=== PATIENT | female | born 1990 ===

== ENCOUNTER 2017-10-04 09:37 | Day surgery (SDC) | payer BC ==
[~2017-10-04 09:37] MED LIST: CEPH500 PO; IBUP800
== END 2017-10-04 23:00 | disposition home or self-care (01) ==
LOC: US 09:37
PROC: BG44ZZZ Ultrasonography of Thyroid Gland (ICD-10-PCS; principal; 2017-10-04)
DX: D44.0 Neoplasm of uncertain behavior of thyroid gland (principal)
CPT/HCPCS: 76536

== ENCOUNTER → 2017-11-12 | Outpatient (CLI) | payer BC | LOC: LAB SHORT 14:24 → PLD 14:24 | DX: R22.1 Localized swelling, mass and lump, neck (principal) ==

== ENCOUNTER 2018-02-28 08:20 | Day surgery (SDC) | payer BC ==
[~2018-02-28] VITALS: Ht 165.1 cm; Wt 71.2 kg
[~2018-02-28 08:20] MED LIST changes: +DHA100 MG PO; +Hydrocodone-Ap1 EA23 PO; +Verotin-Gr Cap1 EACH PO
== END 2018-02-28 12:12 | disposition home or self-care (01) ==
LOC: ORSCSDS 08:20
PROVIDERS: Otolaryngology
PROC: 0JB50ZX Excision of Left Neck Subcutaneous Tissue and Fascia, Open Approach, Diagnostic (ICD-10-PCS; principal; 2018-02-28 09:30)
PROC: 0JB40ZX Excision of Right Neck Subcutaneous Tissue and Fascia, Open Approach, Diagnostic (ICD-10-PCS; principal; 2018-02-28 09:30)
DX: D21.0 Benign neoplasm of connective and other soft tissue of head, face and neck (principal)
CPT/HCPCS: 88304; J1100; J2250; J3010; J7120